=== PATIENT | male | born 1990 | race Caucasian/White ===

== ENCOUNTER 2017-04-15 20:38 | Emergency (ER) | payer OTHER ==
--- NOTE | ~2017-04-15 | CR211 ---
[facility] A Service of [facility] & [facility] RADIOLOGY TEXT RESULTS PATIENT: KIRSTIE IGLESIAS LOCATION: [facility] : [birth year] UNIT #: [id number] AGE: [address]: Lizz Begum SEX: M ORDER DR: [id number] [facility] [address] [place], [place] [address] [id number] MR#: [id number] Acc #: [id number] NAME: KIRSTIE IGLESIAS : 1990 SEX: M STUDY DATE/TIME: 04/16/2017 3:00 UNIT: [facility] ROOM: STUDY DESCRIPTION: CR Ribs Uni 2 View W PA Ch Rt Attending Physician: Lizz Begum Pa-C Ordering Physician: Lizz Begum Pa-C Primary Care Physician: No Primary Care Physician MEDICAL IMAGING REPORT This report is preliminary unless electronic signature is present EXAM Right ribs with PA chest. INDICATION Right rib pain status post fall. Chest pain. FINDINGS PA view of the chest and oblique views of the right ribs without comparison. Heart and mediastinal contours are within normal limits. The lungs are clear. No displaced rib fractures are identified on the right. IMPRESSION Negative chest radiograph and right rib series. Dictated by... Forest Roblero M.D. THIS IS AN ELECTRONICALLY VERIFIED REPORT Forest Roblero M.D. at 04/16/2017 11:09 PM ROSALBA/sudha TD: 04/16/2017 07:44 JOB #: [id number] MEDICAL IMAGING REPORT Page 1 of 1 COPY
[~2017-04-15 20:38] MED LIST: NO MEDICATIONS; ZOFRAN ODT4 MG PO
== END 2017-04-16 03:49 | disposition home or self-care (01) ==
LOC: CED 20:38
DX: R07.81 Pleurodynia (principal); W19.XXXA Unspecified fall, initial encounter; Y93.61 Activity, american tackle football; Y92.009 Unspecified place in unspecified non-institutional (private) residence as the place of occurrence of the external cause
CPT/HCPCS: 71101; 99283

== ENCOUNTER 2017-05-19 00:57 | Emergency (ER) | payer OTHER ==
--- NOTE | ~2017-05-19 | EKG ---
PATIENT: KIRSTIE IGLESIAS UNIT #: [id number] Ventricular Rate: 89 BPM Atrial Rate: 89 BPM P-R Interval: 150 ms QRS Duration: 88 ms Q-T Interval: 364 ms QTC Calculation(Bezet): 442 ms P Purdon: 34 degrees Calculated R Purdon: -10 degrees Calculated T Purdon: 6 degrees Diagnosis Line: Normal sinus rhythm Diagnosis Line: Possible Left atrial enlargement Diagnosis Line: Left ventricular hypertrophy Diagnosis Line: Abnormal ECG Diagnosis Line: No previous ECGs available Diagnosis Line: Confirmed by BON RUFFIN MD ([id number]) on Diagnosis Line: 05/20/2017 6:38:33 AM INTERPRETING MD: ANIYA
[2017-05-19 03:07] LABS: BASOPHIL% 0.5 % (0-2.5); DIFF IND NO; EOSINOPHIL# 0.2 X10e3 (0-0.7); EOSINOPHIL% 1.7 % (0.0-7.0); HEMATOCRIT 46.1 % (38.0-50.0); HEMOGLOBIN 15.1 gm/dL (13.0-16.0); LYMPHOCYTE# 1.8 X10e3 (1.0-3.5); LYMPHOCYTE% 18.6 % (17.0-45.0); MEAN CELL VOLUME 84.7 FL (83-96); MEAN CORPUSCULAR HEMOGLOBIN 27.8 PG (28-34); MEAN CORPUSCULAR HGB CONC 32.8 g/dL (30-36); MEAN PLATELET VOLUME 8.1 FL (6.5-11.5); MONOCYTE# 0.7 X10e3 (0-1.0); MONOCYTE% 7.8 % (3.0-12.0); NEUTROPHIL# 6.8 X10e3 (1.5-7.1); NEUTROPHIL% 71.4 % (40-75); PLATELET COUNT 232 X10e3 (140-420); RED BLOOD COUNT 5.44 X10e (3.90-5.60); RED CELL DISTRIBUTION WIDTH 13.3 % (11.0-15.5); WHITE BLOOD COUNT 9.5 X10e3 (4.0-10.5)
[2017-05-19 03:29] LABS: ALBUMIN SERUM 3.8 g/dL (3.5-5.0); BILIRUBIN, DIRECT 0.1 mg/dL (0.0-0.2); BILIRUBIN,INDIRECT 0.2 mg/dL (0.0-0.9); BILIRUBIN,TOTAL 0.3 mg/dL (0.2-2.0); BUN/CREATININE RATIO 13.33; CALCIUM SERUM 8.8 mg/dL (8.4-10.2); CREATININE SERUM 0.9 mg/dL (0.6-1.4); GLOM FILT RATE Estimated 119.1 mL/min (>60); POTASSIUM 3.8 mmol/L (3.5-5.1); PROTEIN TOTAL SERUM 7.2 g/dL (6.0-8.3)
[2017-05-19 04:08] LABS: POC - CKMB 2.7 ng/mL (0.0-7.9); POC - TROPONIN <0.05 ng/mL (<=0.05)
== END 2017-05-19 05:40 | disposition left against medical advice (07) ==
LOC: CED 00:57
PROVIDERS: Nurse Practitioner Family
DX: R55 Syncope and collapse (principal); R03.0 Elevated blood-pressure reading, without diagnosis of hypertension; Z98.890 Other specified postprocedural states
CPT/HCPCS: 36415; 80048; 80076; 82553; 84484; 85025; 93005; 96360; 99284